=== PATIENT | female | born 1945 | race Caucasian/White ===

== ENCOUNTER 2018-11-13 18:00 | Inpatient (IN) | payer MEDICARE, MEDICAID ==
[~2018-11-13] VITALS: Ht 157.5 cm; Wt 72.6 kg
--- NOTE | 2018-11-13 18:08 | NUR ---
PT BIBPA FROM HOME, FOR MEDCLEARANCE, DANGER TO SELF, +SI, PT IS AAOX4, NOT IN RESPIRATORY DISTRESS, HOOKED TO MONITOR, KEPT RESTED AND COMFORTABLE, WILL CONTINUE TO MONITOR.
--- NOTE | 2018-11-13 18:13 | NUR ---
SEEN AND EXAMINED BY .
--- NOTE | 2018-11-13 18:18 | NUR ---
URINE SPECIMEN COLLECTED AND SENT TO LAB.
[2018-11-13 18:24] LABS: BILIRUBIN,URINE Negative (NEGATIVE); BLOOD, URINE Negative Ery/uL (NEGATIVE); COLOR,URINE Yellow (YELLOW); KETONES,URINE Negative (NEGATIVE); LEUKOCYTE ESTERASE ,URINE Moderate (NEGATIVE); NITRITE, URINE Negative (NEGATIVE); PROTEIN,URINE Negative (NEGATIVE); UGLUCOSE Negative (NEGATIVE); UROBILINOGEN,URINE 0.2 EU/dL (0.2)
[2018-11-13 18:27] LABS: BASOPHILS # (AUTO) 0.1 /CMM (0.0-0.2); BASOPHILS % (AUTO) 0.8 % (0.0-2.0); EOSINOPHILS % (AUTO) 1.7 % (0.0-6.0); HEMATOCRIT 40 % (33-45); HEMOGLOBIN 13.6 g/dL (11.5-14.8); LYMPHOCYTES # (AUTO) 3.9 /CMM (0.8-4.8); LYMPHOCYTES % (AUTO) 35.4 % (20.0-44.0); MEAN CORPUSCULAR HGB CONC 34 g/dl (31.0-36.0); MEAN CORPUSCULAR VOLUME 96 fL (82-100); MONOCYTES % (AUTO) 8.7 % (2.0-12.0); NEUTROPHILS # (AUTO) 5.9 /CMM (1.8-8.9); NEUTROPHILS % (AUTO) 53.4 % (43.0-81.0); PLATELET COUNT (AUTO) 263 /CMM (150-450); RED BLOOD CELL COUNT(AUTO) 4.21 MIL/uL (4.0-5.2)
[2018-11-13 18:32] LABS: APPEARANCE,URINE HAZY (CLEAR)
[2018-11-13 18:34] LABS: BACTERIA,URINE Moderate /HPF (None Seen); RBC,URINE 0-2 /HPF (0-2); SQUAMOUS EPITHELIAL CELL,UR Many /HPF (None Seen)
[2018-11-13] MEDS ORDERED: RISP3TAB14 PO (18:36)
[2018-11-13] MEDS ORDERED: POTA-10 PO (18:36)
[2018-11-13] MEDS ORDERED: ALLO300T2 PO (18:36)
[2018-11-13] MEDS ORDERED: HYDR-4354 PO (18:36)
[2018-11-13] MEDS ORDERED: AMIT10TA6 PO (18:36)
[2018-11-13] MEDS ORDERED: METF-440 PO (18:36)
[2018-11-13] MEDS ORDERED: FURO-145 PO (18:36)
[2018-11-13] MEDS ORDERED: OXYB5TAB11 PO (18:36)
[2018-11-13] MEDS ORDERED: CITA40TA11 PO (18:36)
[2018-11-13] MEDS ORDERED: BENA20TA9 PO (18:36)
[2018-11-13] MEDS ORDERED: NIFE60TA69 PO (18:36)
[2018-11-13] MEDS ORDERED: LORA1TAB PO (18:36)
[2018-11-13] MEDS ORDERED: OMEP20TA5 PO (18:36)
[2018-11-13] MEDS ORDERED: ATOR10TA PO (18:36)
[2018-11-13] MEDS ORDERED: DONE10TA44 PO (18:36)
[2018-11-13 18:41] LABS: CALCIUM, SERUM 8.8 mg/dL (8.5-10.1); CARBON DIOXIDE 26 mmol/L (21-32); CHLORIDE 103 mmol/L (98-107); CREATININE 0.9 mg/dL (0.6-1.3); GLUCOSE 106 mg/dL (74-106); POTASSIUM 3.8 mmol/L (3.5-5.1); SODIUM SERUM 141 mmol/L (136-145); UREA NITROGEN, BLOOD 12 mg/dL (7-18)
--- NOTE | 2018-11-13 18:41 | NUR ---
MCKINLEY ANDREWS CRISISTEAM AT BEDSIDE FOR EVAL.
[2018-11-13 18:48] LABS: ALANINE AMINOTRANSFERASE 19 U/L (12-78); ALBUMIN 3.7 g/dL (3.4-5.0); ALKALINE PHOSPHATASE 97 U/L (46-116); ASPARTATE AMINOTRANSFERASE 14 U/L (15-37); BILIRUBIN,DIRECT 0.1 mg/dL (0.0-0.2); BILIRUBIN,TOTAL 0.3 mg/dL (0.2-1.0); TOTAL PROTEIN, SERUM 7.4 g/dL (6.4-8.2)
[2018-11-13 18:54] LABS: ACETAMINOPHEN < 2 ug/ml (10-30); ALCOHOL, BLOOD < 3 mg/dL (0-0); SALICYLATE < 2.8 mg/dL (2.8-20.0)
--- NOTE | 2018-11-13 19:41 | NUR ---
REPORT GIVEN AT BEDSIDE FOR TORI.
--- NOTE | 2018-11-13 19:50 | NUR ---
GPS ADMISSION NOTES: ADMITTED A 73-YR OLD FEMALE, INITIALLY FROM HOME, ON 5150 FOR DTS. PER HOLD, PT. HAS BEEN ATTEMPTING TO KILL HERSELF. PT. IS EXPRESSING SUICIDAL IDEATION WITH PLAN TO OVERDOSE ON PILLS. UPON FACE TO FACE ASSESSMENT, PATIENT IS ALERT AND ORIENTED X3, PLEASANT UPON APPROACH, AFFECT IS BLUNTED, FEELING DEPRESSED, INTERACTS WHEN ENGAGED. NO AGITATION NOTED. DENIES SI/HI OR HALLUCINATIONS. PT. WAS ADVISED OF THE HOLD. PT'S RIGHTS DISCUSSED GUIDE TO PRESCRIPTION MEDICATIONS GIVEN. IN NO APPARENT DISTRESS NOTED. BELONGINGS WERE INVENTORIED AND CHECKED FOR CONTRABAND. PT. IS UNDER THE PSYCHIATRIC CARE OF DR. DE LA FUENTE ORDERS OBTAINED, AND UNDER THE CARE OF LOAN MANAGER LUMA GRIFFIN. NOTIFIED OF PT'S ADMISSION. MED RECON DONE. SKIN ASSESSMENT PERFORMED INTACT. BED LOCKED AND PLACED IN LOWEST POSITION. SAFETY PRECAUTIONS FOR FALL INITIATED. CALL ROBERTS IN REACH. WILL CONTINUE TO MONITOR Q15 MIN ROUNDS FOR SAFETY.
[2018-11-13 20:00] VITALS: BP 106/65
[2018-11-13] MEDS ORDERED: MAG HYDROX/AL HYDROX/SIMETH 30 ML UDC PO PRN (21:00)
[2018-11-13] MEDS ORDERED: MAGNESIUM HYDROXIDE 30 ML UDC PO PRN (21:00)
[2018-11-13 21:47] VITALS: BP 106/65
[2018-11-13] MEDS ORDERED: BLOOD SUGAR DIAGNOSTIC 1 EACH STRIP IN ONE (22:00)
[2018-11-13] MEDS: TEMAZEPAM 7.5 MG CAPSULE PO PRN (22:07)
[2018-11-13] MEDS ORDERED: DEXTROSE 50%-WATER 50 ML DISP.SYRIN IV PRN (23:00)
[2018-11-13] MEDS: ACETAMINOPHEN 325 MG TABLET PO PRN (23:31)
[2018-11-14 07:05] LABS: CREATININE 0.8 mg/dL (0.6-1.3)
[2018-11-14 07:11] LABS: CHOLESTEROL 123 mg/dL (<200); HDL CHOLESTEROL 47 mg/dL (40-60); LDL 61 mg/dL (0-99); TRIGLYCERIDES 140 mg/dL (30-150)
[2018-11-14] MEDS: BLOOD SUGAR DIAGNOSTIC 1 EACH STRIP IN SCH ×4 (07:30→21:23)
--- NOTE | 2018-11-14 08:00 | NUR ---
RN NOTE: BLOOD SUGAR CHECK MACHINE WAS NOT FUNCTIONING. LAB WAS CONTACTED REGARDING THE MALFUNCTION. PATIENT HAD ALREADY ATE BREAKFAST BY THE TIME A NEW MACHINE WAS BROUGHT TO THE UNIT. 0730 BLOOD SUGAR CHECK MISSED THIS MORNING.
[2018-11-14] MEDS: FUROSEMIDE 20 MG TABLET PO SCH (08:55)
[2018-11-14] MEDS: OXYBUTYNIN CHLORIDE 5 MG TABLET PO SCH ×2 (08:55→16:23)
[2018-11-14] MEDS: POTASSIUM CHLORIDE 10 MEQ TABLET.SA PO SCH (08:55)
[2018-11-14] MEDS: PANTOPRAZOLE 40 MG TABLET.DR PO SCH (08:57)
[2018-11-14] MEDS: ALLOPURINOL 100 MG TABLET PO SCH (08:57)
[2018-11-14] MEDS: BENAZEPRIL HCL 20 MG TABLET PO SCH (08:58)
[2018-11-14] MEDS: NIFEdipine XL 60 MG TAB PO SCH (08:59)
[2018-11-14] MEDS: NICOTINE PATCH (21MG) 21 MG PATCH.TD24 TD SCH (09:00)
[2018-11-14] MEDS ORDERED: LEVOFLOXACIN (250MG) 250 MG TABLET PO SCH (09:00)
[2018-11-14] MEDS: LORAZEPAM 0.5 MG TABLET PO PRN ×2 (09:00→23:11)
[2018-11-14] MEDS ORDERED: Medication Not On Formulary EA (Citalopram Hydrobromide (Citalopram Hbr) 40 MG) PO SCH (09:00)
[2018-11-14] MEDS: NITROFURANTOIN/NITROFURAN MAC 100 MG CAPSULE PO SCH ×2 (09:02→21:04)
--- NOTE | 2018-11-14 09:02 | NUR ---
RN NOTE: PATIENT COMPLAINING OF ANXIETY, PRN ATIVAN GIVEN
[2018-11-14 09:16] VITALS: BP 112/58
[2018-11-14] MEDS: risperiDONE 1 MG TABLET PO SCH ×2 (12:41→16:23)
--- NOTE | 2018-11-14 12:42 | NUR ---
RN NOTE: BS 105 MG/DL; NO INSULIN GIVEN.
[2018-11-14] MEDS: HYDROCODONE/APAP 5/325MG 1 EACH TABLET PO PRN ×2 (14:24→20:22)
--- NOTE | 2018-11-14 14:24 | NUR ---
RN NOTE: PATIENT C/O 7/10 BACK PAIN. PRN NORCO GIVEN.
--- NOTE | 2018-11-14 14:31 | NUR ---
GROUP NOTE Goal: Patient will attend group being held today from 11AM-11:45AM in the activities room and participate and/or actively listen to peers and be respectful. Intervention: SW invited patient to attend group session with peers regarding their support system. SW respected patient�s self-determination and will continue to invite patient to group. Response: Patient presented laying in bed and had a flat affect .Patient declined to participate in today�s group social media sr strategy manager session. Plan: Patient will be invited to attend next social media sr strategy manager group session held.
[2018-11-14 16:00] VITALS: BP 155/60
[2018-11-14] MEDS: OXCARBAZEPINE 150 MG TABLET PO SCH (16:23)
--- NOTE | 2018-11-14 19:31 | NUR ---
RN NOTE: PATIENT WAS COMPLAINING OF LOOSE STOOLS X 3 TIMES TODAY. ALSO C/O HEADACHE, NAUSEA AND STOMACH PAIN. INFORMED CACHORRO CRAWFORD. ORDERED STOOL FOR C. DIFF. ORDERS CARRIED OUT. STOOL COLLECTED. LAB PICKED UP SPECIMEN.
[2018-11-14 20:23] VITALS: BP 97/67
[2018-11-14] MEDS: ATORVASTATIN 10 MG TABLET PO SCH (21:03)
[2018-11-14] MEDS: DONEPEZIL 5 MG TABLET PO SCH (21:04)
[2018-11-14] MEDS: INSULIN REGULAR, HUMAN 100 UNIT/ML 3 ML VIAL SQ PRN (21:27)
--- NOTE | 2018-11-14 23:11 | NUR ---
GPS RN NOTE, PATIENT HAS A COMPLAINT OF FEELING ANXIOUS AND IS REQUESTING ATIVAN AT THIS TIME. PATIENT VITAL SIGNS ARE STABLE. GAVE ATIVAN 0.5MG PO Q6HR PRN ORDERED. WILL REASSESS FOR ANXIETY AND I WILL CONTINUE TO MONITOR THIS PATIENT.
[2018-11-15] MEDS: TEMAZEPAM 7.5 MG CAPSULE PO PRN ×2 (00:01→21:10)
[2018-11-15] MEDS: BLOOD SUGAR DIAGNOSTIC 1 EACH STRIP IN SCH ×4 (07:41→21:16)
[2018-11-15 08:00] VITALS: BP 119/76
[2018-11-15] MEDS: OXCARBAZEPINE 150 MG TABLET PO SCH ×2 (08:15→16:04)
[2018-11-15] MEDS: POTASSIUM CHLORIDE 10 MEQ TABLET.SA PO SCH (08:15)
[2018-11-15] MEDS: NICOTINE PATCH (21MG) 21 MG PATCH.TD24 TD SCH (08:15)
[2018-11-15] MEDS: OXYBUTYNIN CHLORIDE 5 MG TABLET PO SCH ×2 (08:16→16:04)
[2018-11-15] MEDS: PANTOPRAZOLE 40 MG TABLET.DR PO SCH (08:16)
[2018-11-15] MEDS: NIFEdipine XL 60 MG TAB PO SCH (08:17)
[2018-11-15] MEDS: FUROSEMIDE 20 MG TABLET PO SCH (08:18)
[2018-11-15] MEDS: ALLOPURINOL 100 MG TABLET PO SCH (08:18)
[2018-11-15] MEDS: NITROFURANTOIN/NITROFURAN MAC 100 MG CAPSULE PO SCH ×2 (08:18→21:09)
[2018-11-15] MEDS: BENAZEPRIL HCL 20 MG TABLET PO SCH (08:19)
[2018-11-15] MEDS: risperiDONE 1 MG TABLET PO SCH ×3 (08:46→16:03)
[2018-11-15] MEDS: LORAZEPAM 0.5 MG TABLET PO PRN ×3 (08:46→23:39)
--- NOTE | 2018-11-15 10:51 | NUR ---
TORITO called pts daughter, Hawa ([phone]), and informed her about the treatment plan and the initial discharge plan. She stated that the pt will return to her home with her caregiver who is also the pts niece.
--- NOTE | 2018-11-15 11:52 | NUR ---
TORITO called the pts caregiver, Chanel Parrish ([phone]), and informed her about the pts treatment plan and initial discharge plan. TORITO confirmed that the pt will be returning to their residence and will continue to be under her care.
[2018-11-15] MEDS: HYDROCODONE/APAP 5/325MG 1 EACH TABLET PO PRN ×2 (11:57→19:59)
--- NOTE | 2018-11-15 15:08 | NUR ---
GPS RN NOTE: PATIENT COMPLAINING OF FEELING ANXIOUS GAVE ATIVAN 0.5MG PO Q6HR PRN ORDERED.
[2018-11-15 16:00] VITALS: BP 100/52
[2018-11-15] MEDS: MUPIROCIN OINT 2% 22 GM TUBE TP SCH (16:26)
[2018-11-15 20:00] VITALS: BP 115/68
--- NOTE | 2018-11-15 20:00 | NUR ---
C/O LOWER BACK PAIN, HYDROCODONE 5/325 MG TAB 1 PO GIVEN.
--- NOTE | 2018-11-15 20:26 | NUR ---
PATIENT SITTING INSIDE HER ROOM, CALM, COOPERATIVE, MED COMPLIANT, TAKES WHOLE PILLS. AMBULATORY/STEADY GAIT. C/O LOWER BACK PAIN, MEDICATED WITH NORCO AT 1959. ENVIRONMENTAL SAFETY CHECK DONE. WILL CONTINUE TO MONITOR Q 15 MINS. TO MAINTAN SAFETY.
--- NOTE | 2018-11-15 20:56 | NUR ---
REQUESTING SNACKS, ACCUCHECK DONE, 107 MG/DL. SANDWICH AND 120 ML O. JUICE GIVEN.
[2018-11-15] MEDS: DONEPEZIL 5 MG TABLET PO SCH (21:09)
[2018-11-15] MEDS: ATORVASTATIN 10 MG TABLET PO SCH (21:10)
--- NOTE | 2018-11-15 23:39 | NUR ---
Feeling anxious, asking for medication. ativan 0.5 mg tab po given.
[2018-11-16] MEDS: MUPIROCIN OINT 2% 22 GM TUBE TP SCH ×2 (03:25→16:36)
[2018-11-16 08:00] VITALS: BP 106/50
--- NOTE | 2018-11-16 08:00 | NUR ---
AWAKE, ALERT, ORIENTED X3, CALM, COOPERATIVE, DENIES SI/HI, C/O HEADACHE GAVE NORCO 5/325 1 TAB PO. PT TAKES WHOLE PILLS.PLEASANT AND COOPERATIVE WITH STAFF .AMBULATORY WITH STEADY GAIT. ENVIRONMENTAL SAFETY CHECK DONE. WILL CONTINUE TO MONITOR Q 15 MINS. TO MAINTAIN SAFETY.
[2018-11-16] MEDS: OXCARBAZEPINE 150 MG TABLET PO SCH ×3 (08:42→16:55)
[2018-11-16] MEDS: PANTOPRAZOLE 40 MG TABLET.DR PO SCH (08:42)
[2018-11-16] MEDS: POTASSIUM CHLORIDE 10 MEQ TABLET.SA PO SCH (08:42)
[2018-11-16] MEDS: NITROFURANTOIN/NITROFURAN MAC 100 MG CAPSULE PO SCH ×2 (08:42→20:08)
[2018-11-16] MEDS: HYDROCODONE/APAP 5/325MG 1 EACH TABLET PO PRN ×3 (08:43→18:27)
[2018-11-16] MEDS: FUROSEMIDE 20 MG TABLET PO SCH (08:43)
[2018-11-16] MEDS: ALLOPURINOL 100 MG TABLET PO SCH (08:43)
[2018-11-16] MEDS: risperiDONE 1 MG TABLET PO SCH ×3 (08:43→16:54)
[2018-11-16] MEDS: NICOTINE PATCH (21MG) 21 MG PATCH.TD24 TD SCH (08:43)
[2018-11-16] MEDS: OXYBUTYNIN CHLORIDE 5 MG TABLET PO SCH ×2 (08:43→16:54)
[2018-11-16] MEDS: BLOOD SUGAR DIAGNOSTIC 1 EACH STRIP IN SCH ×4 (08:45→21:52)
[2018-11-16] MEDS: BENAZEPRIL HCL 20 MG TABLET PO SCH (08:46)
[2018-11-16] MEDS: NIFEdipine XL 60 MG TAB PO SCH (08:46)
--- NOTE | 2018-11-16 11:34 | NUR ---
Initial Discharge Plan: Pt currently resides at her home located at [address] [place] [address] ([phone]) with her niece who is her caregiver. Per pt, she will return to her home. SW will work with the pt and the MD regarding appropriate discharge planning. SW will form a safe and proper discharge.
[2018-11-16] MEDS: LORAZEPAM 0.5 MG TABLET PO PRN ×2 (13:33→20:07)
[2018-11-16 16:00] VITALS: BP 145/85
[2018-11-16] MEDS: INSULIN REGULAR, HUMAN 100 UNIT/ML 3 ML VIAL SQ PRN (17:26)
--- NOTE | 2018-11-16 17:49 | NUR ---
PATIENT SITTING INSIDE HER ROOM,ON CONTACT ISOLATION PRECAUTIONS FOR MRSA NARES, CALM, COOPERATIVE, MED COMPLIANT, TAKES WHOLE PILLS. AMBULATORY/STEADY GAIT. ENVIRONMENTAL SAFETY CHECK DONE. WILL CONTINUE TO MONITOR Q 15 MINS. TO MAINTAIN SAFETY.
[2018-11-16 20:00] VITALS: BP 108/61
--- NOTE | 2018-11-16 20:07 | NUR ---
RN NOTES PATIENT COMPLAIN OF FEELING ANXIOUS. ADMINISTERED ATIVAN .5MG ORDERED AT PATIENT REQUEST. VSS. WILL CONTINUE TO MONITOR.
[2018-11-16] MEDS: DONEPEZIL 5 MG TABLET PO SCH (21:51)
[2018-11-16] MEDS: TEMAZEPAM 7.5 MG CAPSULE PO PRN (21:51)
[2018-11-16] MEDS: ATORVASTATIN 10 MG TABLET PO SCH (21:51)
[2018-11-17] MEDS: HYDROCODONE/APAP 5/325MG 1 EACH TABLET PO PRN ×5 (00:47→23:10)
[2018-11-17] MEDS: MUPIROCIN OINT 2% 22 GM TUBE TP SCH ×2 (03:30→15:47)
[2018-11-17 08:00] VITALS: BP 125/66
[2018-11-17] MEDS: BLOOD SUGAR DIAGNOSTIC 1 EACH STRIP IN SCH ×4 (08:04→21:07)
--- NOTE | 2018-11-17 08:21 | NUR ---
MEDICATED FOR BACK PAIN WITH NORCO 5 MG PO.
[2018-11-17] MEDS: NITROFURANTOIN/NITROFURAN MAC 100 MG CAPSULE PO SCH ×2 (10:12→21:11)
[2018-11-17] MEDS: OXYBUTYNIN CHLORIDE 5 MG TABLET PO SCH ×2 (10:12→17:46)
[2018-11-17] MEDS: NICOTINE PATCH (21MG) 21 MG PATCH.TD24 TD SCH (10:12)
[2018-11-17] MEDS: POTASSIUM CHLORIDE 10 MEQ TABLET.SA PO SCH (10:12)
[2018-11-17] MEDS: ALLOPURINOL 100 MG TABLET PO SCH (10:12)
[2018-11-17] MEDS: FUROSEMIDE 20 MG TABLET PO SCH (10:12)
[2018-11-17] MEDS: PANTOPRAZOLE 40 MG TABLET.DR PO SCH (10:13)
[2018-11-17] MEDS: NIFEdipine XL 60 MG TAB PO SCH (10:13)
[2018-11-17] MEDS: OXCARBAZEPINE 150 MG TABLET PO SCH ×2 (10:13→17:46)
[2018-11-17] MEDS: risperiDONE 1 MG TABLET PO SCH ×2 (10:14→20:15)
--- NOTE | 2018-11-17 13:24 | NUR ---
MEDICATED FOR BACK PAIN WITH NORCO.
[2018-11-17] MEDS: BENAZEPRIL HCL 20 MG TABLET PO SCH (15:45)
[2018-11-17] MEDS: LIDOCAINE 5% (PATCH) 1 EA PATCH TP SCH (15:47)
[2018-11-17 16:00] VITALS: BP 102/66
--- NOTE | 2018-11-17 17:00 | NUR ---
RELOCATED TO RM.214-A.
--- NOTE | 2018-11-17 18:45 | NUR ---
MEDICATED FOR BACK PAIN WITH NORCO.
[2018-11-17 20:00] VITALS: BP_SYST 103; BP_SYST 115; BP_DIAS 57; BP_DIAS 72
[2018-11-17] MEDS: ATORVASTATIN 10 MG TABLET PO SCH (21:05)
[2018-11-17] MEDS: DONEPEZIL 5 MG TABLET PO SCH (21:07)
--- NOTE | 2018-11-17 22:10 | NUR ---
rn initial notes: received report from alayna kapoor. pt in bed, awake, a/o x3, cooperative, able to make needs known. noted tardive dyskinesia, tremors. denies any si/hi. med compliant per report. 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 on bactroban and macrobid. safety precautions for fall initiated, side rails ups x2 for safety, will continue monitoring [id number] for safety and any changes in behavior.
--- NOTE | 2018-11-17 23:11 | NUR ---
prn norco: pt requested for pain medication, stated she has lower back pain 10/10, prn norco 5/325 mg tab po administered to pt at this time, will continue to monitor and reassess pt
--- NOTE | 2018-11-18 03:30 | NUR ---
rn notes: pt asleep, tried waking patient up, informed about medication-bactroban ointment for mrsa nares, pt went back to sleep. tried to wake up pt again, pt stated she would like to sleep. will offer again later.
--- NOTE | 2018-11-18 04:30 | NUR ---
rn notes: pt still sleeping, offered medication, pt stated later, saying she's still sleeping.
--- NOTE | 2018-11-18 05:19 | NUR ---
rn notes: pt now awake, offered again bactroban medication, pt agree. bactroban ointment applied on both nostrils
[2018-11-18] MEDS: MUPIROCIN OINT 2% 22 GM TUBE TP SCH ×2 (05:22→16:49)
[2018-11-18] MEDS: BLOOD SUGAR DIAGNOSTIC 1 EACH STRIP IN SCH ×4 (07:42→22:01)
[2018-11-18 08:00] VITALS: BP 121/64
[2018-11-18] MEDS: NICOTINE PATCH (21MG) 21 MG PATCH.TD24 TD SCH (08:34)
[2018-11-18] MEDS: NITROFURANTOIN/NITROFURAN MAC 100 MG CAPSULE PO SCH (08:34)
[2018-11-18] MEDS: POTASSIUM CHLORIDE 10 MEQ TABLET.SA PO SCH (08:34)
[2018-11-18] MEDS: NIFEdipine XL 60 MG TAB PO SCH (08:34)
[2018-11-18] MEDS: OXYBUTYNIN CHLORIDE 5 MG TABLET PO SCH ×2 (08:35→16:48)
[2018-11-18] MEDS: risperiDONE 1 MG TABLET PO SCH ×2 (08:35→20:46)
[2018-11-18] MEDS: PANTOPRAZOLE 40 MG TABLET.DR PO SCH (08:35)
[2018-11-18] MEDS: BENAZEPRIL HCL 20 MG TABLET PO SCH (08:35)
[2018-11-18] MEDS: ALLOPURINOL 100 MG TABLET PO SCH (08:35)
[2018-11-18] MEDS: FUROSEMIDE 20 MG TABLET PO SCH (08:35)
[2018-11-18] MEDS: HYDROCODONE/APAP 5/325MG 1 EACH TABLET PO PRN ×3 (08:36→21:26)
--- NOTE | 2018-11-18 08:40 | NUR ---
GPS/RN-NOTES. PATIENT REQUESTING NORCO FOR 910 LOWER RIGHT BACK. NORCO 5/325MG 1 TAB. P.O GIVEN PRN ORDER. WILL CONT. MONITORING FOR SAFETY.
[2018-11-18] MEDS: OXCARBAZEPINE 150 MG TABLET PO SCH ×2 (09:30→16:48)
[2018-11-18] MEDS: LORAZEPAM 0.5 MG TABLET PO PRN ×2 (11:52→18:52)
--- NOTE | 2018-11-18 12:08 | NUR ---
GPS/RN-NOTES PATIENT REQUESTING ATIVAN. STATED" I NEED IT I'M ANXIOUS" ATIVAN 0.5MG P.O GIVEN PRN ORDER. WILL CONT. MONITORING FOR SAFETY AND BEHAVIOR.
--- NOTE | 2018-11-18 13:53 | NUR ---
GPS/RN-NOTES PATIENT LAYING IN BED CALM,NO ACUTE DISTRESS NOTED.
[2018-11-18 16:00] VITALS: BP 117/56
[2018-11-18] MEDS: LIDOCAINE 5% (PATCH) 1 EA PATCH TP SCH (16:48)
--- NOTE | 2018-11-18 18:54 | NUR ---
GPS/RN-NOTES PATIENT STATED" I NEED MY ATIVAN, I'M VERY ANXIOUS". ATIVAN 0.5MG P.O GIVEN PRN ORDER. WILL ENDORSE TO INCOMING NURSE FOR CONT.OF CARE AND MONITORING FOR SAFETY AND BEHAVIOR.
[2018-11-18 20:00] VITALS: BP 122/68
[2018-11-18] MEDS: ATORVASTATIN 10 MG TABLET PO SCH (22:00)
[2018-11-18] MEDS: DONEPEZIL 5 MG TABLET PO SCH (22:01)
[2018-11-18] MEDS: TEMAZEPAM 7.5 MG CAPSULE PO PRN (22:33)
[2018-11-19] MEDS: MUPIROCIN OINT 2% 22 GM TUBE TP SCH ×2 (03:42→16:14)
[2018-11-19] MEDS: HYDROCODONE/APAP 5/325MG 1 EACH TABLET PO PRN ×4 (04:45→23:01)
[2018-11-19 08:00] VITALS: BP 130/74
[2018-11-19] MEDS: BLOOD SUGAR DIAGNOSTIC 1 EACH STRIP IN SCH ×4 (08:08→21:37)
[2018-11-19] MEDS: risperiDONE 1 MG TABLET PO SCH ×2 (08:10→20:43)
[2018-11-19] MEDS: FUROSEMIDE 20 MG TABLET PO SCH (08:10)
[2018-11-19] MEDS: BENAZEPRIL HCL 20 MG TABLET PO SCH (08:10)
[2018-11-19] MEDS: PANTOPRAZOLE 40 MG TABLET.DR PO SCH (08:10)
[2018-11-19] MEDS: OXCARBAZEPINE 150 MG TABLET PO SCH ×2 (08:11→16:14)
[2018-11-19] MEDS: NICOTINE PATCH (21MG) 21 MG PATCH.TD24 TD SCH (08:11)
[2018-11-19] MEDS: ALLOPURINOL 100 MG TABLET PO SCH (08:12)
[2018-11-19] MEDS: NIFEdipine XL 60 MG TAB PO SCH (08:12)
[2018-11-19] MEDS: POTASSIUM CHLORIDE 10 MEQ TABLET.SA PO SCH (08:12)
[2018-11-19] MEDS: LORAZEPAM 0.5 MG TABLET PO PRN ×2 (08:51→16:14)
[2018-11-19] MEDS: OXYBUTYNIN CHLORIDE 5 MG TABLET PO SCH ×2 (08:51→16:14)
--- NOTE | 2018-11-19 08:51 | NUR ---
RN NOTES ADMINISTERED ATIVAN 0.5 MG PO PRN FOR ANXIETY PER PATIENT REQUEST, V/S TAKEN BP-130/74, P-70, CONTINUED MONITORING.
--- NOTE | 2018-11-19 10:49 | NUR ---
RN NOTES ADMINISTERED NARCO 5/325 MG PO PRN FOR LOWER BACK PAIN 9/10 PER PAIN SCALE, V/S TAKEN BP-128/75, P-73, CONTINUED MONITORING.
--- NOTE | 2018-11-19 15:00 | NUR ---
GROUP NOTE: SW prompted pt to participate in group session on this present day discussing "current issues you are having while being on a hold." Pt was asleep in her room and not easily aroused.
[2018-11-19 16:00] VITALS: BP 103/57
[2018-11-19] MEDS: LIDOCAINE 5% (PATCH) 1 EA PATCH TP SCH (16:14)
--- NOTE | 2018-11-19 16:14 | NUR ---
RN NOTES ADMINISTERED ATIVAN 0.5 MG PO PRN FOR ANXIETY PER PATIENT S REQUEST V/S TAKEN BP-103/57, P-92, CONTINUED MONITORING.
[2018-11-19] MEDS: INSULIN REGULAR, HUMAN 100 UNIT/ML 3 ML VIAL SQ PRN (17:55)
--- NOTE | 2018-11-19 18:29 | NUR ---
RN NOTES ADMINISTERED NARCO 5/325 MG PO PRN FOR LOWER BACK PAIN 12/11 PER PATIENT REQUEST V/S TAKEN BP-130/62, P-90, R-19, CONTINUED MONITORING.
[2018-11-19 19:51] VITALS: BP 106/60
[2018-11-19] MEDS: TEMAZEPAM 7.5 MG CAPSULE PO PRN (21:37)
[2018-11-19] MEDS: ATORVASTATIN 10 MG TABLET PO SCH (21:37)
[2018-11-19] MEDS: DONEPEZIL 5 MG TABLET PO SCH (21:37)
[2018-11-20] MEDS: MUPIROCIN OINT 2% 22 GM TUBE TP SCH ×2 (04:19→14:35)
[2018-11-20] MEDS: HYDROCODONE/APAP 5/325MG 1 EACH TABLET PO PRN ×5 (04:25→23:26)
[2018-11-20] MEDS: BLOOD SUGAR DIAGNOSTIC 1 EACH STRIP IN SCH ×4 (07:28→21:09)
[2018-11-20] MEDS: PANTOPRAZOLE 40 MG TABLET.DR PO SCH (07:33)
[2018-11-20] MEDS: NICOTINE PATCH (21MG) 21 MG PATCH.TD24 TD SCH (08:25)
[2018-11-20] MEDS: POTASSIUM CHLORIDE 10 MEQ TABLET.SA PO SCH (08:26)
[2018-11-20] MEDS: NIFEdipine XL 60 MG TAB PO SCH (08:26)
[2018-11-20] MEDS: ALLOPURINOL 100 MG TABLET PO SCH (08:26)
[2018-11-20] MEDS: FUROSEMIDE 20 MG TABLET PO SCH (08:26)
[2018-11-20] MEDS: risperiDONE 1 MG TABLET PO SCH ×2 (08:26→20:00)
[2018-11-20] MEDS: BENAZEPRIL HCL 20 MG TABLET PO SCH (08:26)
[2018-11-20] MEDS: OXYBUTYNIN CHLORIDE 5 MG TABLET PO SCH ×2 (08:27→16:07)
[2018-11-20] MEDS: OXCARBAZEPINE 150 MG TABLET PO SCH ×2 (08:27→16:07)
[2018-11-20 09:18] VITALS: BP 153/97
--- NOTE | 2018-11-20 10:39 | NUR ---
TORITO conducted a substance abuse intervention with the pt due to her history with cocaine use and her use of cannabis.
--- NOTE | 2018-11-20 10:41 | NUR ---
SW called the pts caregiver, Chanel Parrish ([phone]), and left a voicemail that informed her that the pt is going to be discharged the following day and that the SW would like to coordinate the discharge.
--- NOTE | 2018-11-20 10:43 | NUR ---
TORITO called pts daughter, Hawa ([phone]), and informed her that the pt is going to be discharged back home with her caregiver the following day.
[2018-11-20] MEDS: LORAZEPAM 0.5 MG TABLET PO PRN ×2 (11:07→17:45)
[2018-11-20] MEDS: ACETAMINOPHEN 325 MG TABLET PO PRN (12:00)
[2018-11-20] MEDS: LIDOCAINE 5% (PATCH) 1 EA PATCH TP SCH (14:32)
--- NOTE | 2018-11-20 15:38 | NUR ---
TORITO called the pts caregiver, Chanel Parrish ([phone]), and informed her that the pt is being discharged tomorrow and she stated that she would arrive at 11:30AM to pick the pt up.
[2018-11-20 16:00] VITALS: BP 119/74
[2018-11-20 20:23] VITALS: BP 130/72
[2018-11-20] MEDS: ATORVASTATIN 10 MG TABLET PO SCH (21:09)
[2018-11-20] MEDS: DONEPEZIL 5 MG TABLET PO SCH (21:10)
[2018-11-20] MEDS: TEMAZEPAM 7.5 MG CAPSULE PO PRN (21:45)
--- NOTE | 2018-11-20 23:37 | NUR ---
RN NOTES ADMINISTERED NARCO 5/325 MG PO PRN FOR LOWER BACK PAIN 11/10 PER PATIENT REQUEST V/S TAKEN BP-122/70, P-80, R-18, WILL CONTINUED TO MONITORING.
[2018-11-21] MEDS: MUPIROCIN OINT 2% 22 GM TUBE TP SCH (03:59)
[2018-11-21] MEDS: HYDROCODONE/APAP 5/325MG 1 EACH TABLET PO PRN (07:56)
--- NOTE | 2018-11-21 07:56 | NUR ---
MED. FOR BACK PAIN WITH [place].
[2018-11-21 08:00] VITALS: BP 131/83
[2018-11-21] MEDS: BLOOD SUGAR DIAGNOSTIC 1 EACH STRIP IN SCH ×2 (08:37→12:19)
[2018-11-21] MEDS: NICOTINE PATCH (21MG) 21 MG PATCH.TD24 TD SCH (09:46)
[2018-11-21] MEDS: PANTOPRAZOLE 40 MG TABLET.DR PO SCH (09:46)
[2018-11-21] MEDS: POTASSIUM CHLORIDE 10 MEQ TABLET.SA PO SCH (09:46)
[2018-11-21] MEDS: ALLOPURINOL 100 MG TABLET PO SCH (09:46)
[2018-11-21 09:47] VITALS: BP 131/83
[2018-11-21] MEDS: OXCARBAZEPINE 150 MG TABLET PO SCH (09:47)
[2018-11-21] MEDS: NIFEdipine XL 60 MG TAB PO SCH (09:47)
[2018-11-21] MEDS: OXYBUTYNIN CHLORIDE 5 MG TABLET PO SCH (09:47)
[2018-11-21] MEDS: risperiDONE 1 MG TABLET PO SCH (09:47)
[2018-11-21] MEDS: FUROSEMIDE 20 MG TABLET PO SCH (09:50)
[2018-11-21] MEDS: INSULIN REGULAR, HUMAN 100 UNIT/ML 3 ML VIAL SQ PRN (12:27)
--- NOTE | 2018-11-21 13:15 | NUR ---
NIJORDAN HERE AND GIVEN ALL PAPERS ON PT. SIGNATURES OBTAINED.BELONGINGS GIVEN TO PT.NO SKIN ISSUES.DC ORDERS GIVEN PER INTERNAL MEDICINE AND PSYCHIATRIST.PT. DENIES SUICIDAL IDEATION,HOMICIDAL IDEATION AND COMMAND HALLUCINATIONS.ACCU-CHECK DONE.PT. ANXIOUS TO LEAVE.HAS RXS.KINDRA DOES NOT HAVE HOME SCHOOL COORDINATOR.REFERRAL NAME OF HOME SCHOOL COORDINATOR GIVEN TO SUNITHAJORDAN BY SOC. SERVICE. NAME ENTERED ON DC RECORD IN COMPUTER.PT. TAKEN TO LOBBY VIA W/CHAIR BY JUAN,ACCOMPANIED BY KINDRA.
--- NOTE | 2018-11-21 13:18 | NUR ---
Discharge Note: Pt was discharged to her home located at [address] [place] [address]. Pt was picked up by her niece/caregiver, Chanel Parrish ([phone]), around 11:30AM. Upon discharge, the pt appeared to be in a euthymic mood and presented with an anxious affect. Pt denied both suicidal and homicidal ideation as well as auditory and visual hallucinations. Pt will be under the care of her psychiatrist, Dr. Linda Finley, located at [address] [address], . Request for appointment was made on [email or web address] for early the following week. Pt will also be under the care of his construction recruiter, Dr. Jose Maria Portillo, located at [address] [place] [address]; .
--- NOTE | 2018-11-21 13:28 | NUR ---
Pt was provided with the following substance abuse referrals: [facility] [address] [place] [address] Tel. �[facility] �Primary Care �[facility] [place] Provider �Mental Health Treatment �Tele-dermatology �HIV Services �[facility] [place] [address] [place] [address] [facility] [address] [place] [address]
--- NOTE | 2018-12-05 16:59 | NUR ---
15 Day Substance Abuse Follow Up: SW made three attempts to reach the pt ([phone]), but the pt did not answer the call.
== END 2018-11-21 13:00 | disposition home or self-care (01) | DRG 885 ==
LOC: ER 18:03 → GPS 18:33
PROVIDERS: ADMIT Psychiatry & Neurology Psychosomatic Medicine; ATTEND Nurse Practitioner Acute Care
DX: F25.0 Schizoaffective disorder, bipolar type (principal); G93.41 Metabolic encephalopathy; N39.0 Urinary tract infection, site not specified; F23 Brief psychotic disorder; F15.10 Other stimulant abuse, uncomplicated; F17.210 Nicotine dependence, cigarettes, uncomplicated; F32.9 Major depressive disorder, single episode, unspecified; F41.9 Anxiety disorder, unspecified; F03.90 Unspecified dementia, unspecified severity, without behavioral disturbance, psychotic disturbance, mood disturbance, and anxiety; I10 Essential (primary) hypertension; E78.5 Hyperlipidemia, unspecified; K21.9 Gastro-esophageal reflux disease without esophagitis; M10.9 Gout, unspecified; Z88.0 Allergy status to penicillin
CPT/HCPCS: 36415; 80048-TC; 80061-TC; 80076-TC; 80305; 81000-TC; 82565-TC; 82962-TC; 85025-TC; 87081-TC; 87086-TC; G0480; J1815